=== PATIENT | male | born 1940 | race Caucasian/White ===

== ENCOUNTER 2022-09-05 13:44 | Inpatient (IN) | payer OTHER ==
[~2022-09-05] VITALS: Ht 188 cm; Wt 80.5 kg
[2022-09-05] MEDS ORDERED: GLUCAGON EMERG KIT 1mg/1ml IV ONE ×2 (14:30→18:00)
[2022-09-05] MEDS ORDERED: ONDANSETRON HCL 4 MG/2 ML VIAL IV ONE (14:30)
[2022-09-05 15:23] LABS: Basophils # (auto) 0 10 ^3/uL (0-0.2); Basophils % (auto) 0.9 % (0.0-2.0); Eosinophils # (auto) 0.1 10 ^3/uL (0-0.8); Eosinophils % (auto) 1.7 % (0.0-7.0); Hematocrit 44.7 % (41.0-53.0); Hemoglobin 15.1 g/dL (13.5-17.5); Lymphocytes # (auto) 1.1 10 ^3/uL (0.4-5.4); Lymphocytes % (auto) 20.8 % (10.0-50.0); Mean Corpuscular Hemoglobin 31.4 pg (28.0-32.0); Mean Corpuscular Hgb Conc. 33.8 g/dL (32.0-36.0); Mean Corpuscular Volume 92.9 fL (80.0-100.0); Monocytes # (auto) 0.5 10 ^3/uL (0-1.3); Monocytes % (auto) 9.2 % (0.0-12.0); Neutrophils # (auto) 3.7 10 ^3/uL (1.6-8.6); Neutrophils % (auto) 67.4 % (37.0-80.0); Nucleated Red Blood Cells % 0.1 %; Red Blood Cells 4.82 10^6/uL (4.5-5.90); Red Cell Distribution Width 14.4 % (11.8-14.3); White Blood Cell 5.5 10^3/uL (4.4-10.8)
[2022-09-05 15:41] LABS: INR 0.97 (0.9-1.15); Partial Thromboplastin Time 27.3 sec (24.6-33.4)
[2022-09-05] MEDS ORDERED: METOCLOPRAMIDE HCL 5MG/ml INJ 2ml VIAL IV ONE (15:45)
[2022-09-05 15:46] LABS: Albumin 3.9 g/dL (3.4-5.0); BUN/Creatinine Ratio 22.5 (10.0-20.0); Calcium 9.1 mg/dL (8.5-10.1); Potassium 4.4 mmol/L (3.5-5.1)
[2022-09-05 15:49] LABS: Total Protein 7.8 g/dL (6.4-8.2)
[2022-09-05] MEDS ORDERED: ONDANSETRON HCL 4 MG/2 ML VIAL IV PRN (18:00)
[2022-09-05] MEDS ORDERED: PANTOPRAZOLE 40 MG/10 ML VIAL INJ IV ONE (18:00)
[2022-09-05] MEDS ORDERED: hydrALAZINE HCL 20 MG/ML VL IV PRN (18:30)
[2022-09-05 19:54] LABS: Urine Bacteria NONE SEEN /hpf (None Seen); Urine Blood Negative /uL (Negative); Urine Mucus FEW (None Seen); Urine WBC 1 /hpf (0 - 3)
[2022-09-05] MEDS ORDERED: ONDANSETRON HCL 4 MG/2 ML VIAL ONE (20:06)
[2022-09-05] MEDS ORDERED: PROPOFOL 10 MG/ML 20 ML IV ONE (20:06)
[2022-09-05] MEDS ORDERED: MIDAZOLAM HCL 2MG/2ML 2ml VIAL (1mg/ml) ONE (20:06)
[2022-09-05] MEDS ORDERED: fentaNYL CITRATE 100 MCG/2 ML VL ONE (20:06)
[2022-09-05] MEDS ORDERED: SODIUM CHLORIDE LOCK 10 ML ONE (20:06)
[2022-09-05 21:59] VITALS: BP 136/71
[2022-09-05] MEDS ORDERED: MELO1TAB56 PO (22:20)
[2022-09-05] MEDS ORDERED: HYDR-4072 PO (22:20)
[2022-09-05 22:22] VITALS: BP 119/54
[2022-09-05] MEDS: SUCRALFATE 1 GM/10 ML ORAL SUSP PO SCH (22:53)
[2022-09-05 23:00] VITALS: BP 136/71
[2022-09-06 05:00] VITALS: BP 132/74
[2022-09-06] MEDS: SUCRALFATE 1 GM/10 ML ORAL SUSP PO SCH ×2 (06:35→09:57)
[2022-09-06 07:17] LABS: Basophils # (auto) 0.1 10 ^3/uL (0-0.2); Basophils % (auto) 1.2 % (0.0-2.0); Eosinophils # (auto) 0.2 10 ^3/uL (0-0.8); Eosinophils % (auto) 3.5 % (0.0-7.0); Hematocrit 39.4 % (41.0-53.0); Hemoglobin 13.2 g/dL (13.5-17.5); Lymphocytes # (auto) 1.6 10 ^3/uL (0.4-5.4); Lymphocytes % (auto) 25.1 % (10.0-50.0); Mean Corpuscular Hemoglobin 31.4 pg (28.0-32.0); Mean Corpuscular Hgb Conc. 33.6 g/dL (32.0-36.0); Mean Corpuscular Volume 93.4 fL (80.0-100.0); Monocytes # (auto) 0.6 10 ^3/uL (0-1.3); Monocytes % (auto) 9.6 % (0.0-12.0); Neutrophils # (auto) 3.9 10 ^3/uL (1.6-8.6); Neutrophils % (auto) 60.6 % (37.0-80.0); Nucleated Red Blood Cells % 0.1 %; Red Blood Cells 4.22 10^6/uL (4.5-5.90); Red Cell Distribution Width 14.2 % (11.8-14.3); White Blood Cell 6.4 10^3/uL (4.4-10.8)
[2022-09-06 07:23] LABS: Potassium 3.9 mmol/L (3.5-5.1)
[2022-09-06 07:40] LABS: BUN/Creatinine Ratio 24.4 (10.0-20.0); Bilirubin, Total 0.9 mg/dL (0.2-1.0); Calcium 8.1 mg/dL (8.5-10.1); Total Protein 6.2 g/dL (6.4-8.2)
[2022-09-06 09:38] VITALS: BP 125/64
[2022-09-06] MEDS ORDERED: ENOXAPARIN SOD 40 MG/0.4 ML SYRINGE SC SCH (10:00)
[2022-09-06] MEDS ORDERED: PANTOPRAZOLE 40 MG/10 ML VIAL INJ IV SCH (10:00)
[2022-09-06 13:23] VITALS: BP 125/61
[2022-09-06] MEDS ORDERED: SUCR1SUS10 PO (13:23)
[2022-09-06] MEDS ORDERED: PANT40TA2 PO (13:23)
== END 2022-09-06 16:00 | disposition home or self-care (01) | DRG 394 ==
LOC: ER 13:44 → TELE 18:23 → TELE-EAST 20:58
PROVIDERS: ADMIT Registered Nurse; ATTEND Internal Medicine
PROC: 0DB98ZX Excision of Duodenum, Via Natural or Artificial Opening Endoscopic, Diagnostic (ICD-10-PCS; 2022-09-05)
PROC: 0DB68ZX Excision of Stomach, Via Natural or Artificial Opening Endoscopic, Diagnostic (ICD-10-PCS; 2022-09-05)
PROC: 0DB58ZX Excision of Esophagus, Via Natural or Artificial Opening Endoscopic, Diagnostic (ICD-10-PCS; 2022-09-05)
PROC: 0DC38ZZ Extirpation of Matter from Lower Esophagus, Via Natural or Artificial Opening Endoscopic (ICD-10-PCS; principal; 2022-09-05 20:09)
DX: T18.108A Unspecified foreign body in esophagus causing other injury, initial encounter (principal); K22.10 Ulcer of esophagus without bleeding; X58.XXXA Exposure to other specified factors, initial encounter; K26.9 Duodenal ulcer, unspecified as acute or chronic, without hemorrhage or perforation; I10 Essential (primary) hypertension; G24.9 Dystonia, unspecified; G20 Parkinson's disease; K29.90 Gastroduodenitis, unspecified, without bleeding; K44.9 Diaphragmatic hernia without obstruction or gangrene; Z88.0 Allergy status to penicillin; Y93.89 Activity, other specified; Y92.89 Other specified places as the place of occurrence of the external cause; Y99.8 Other external cause status; Z88.2 Allergy status to sulfonamides; Z88.5 Allergy status to narcotic agent
CPT/HCPCS: 36415; 71045; 80053; 81001; 84484; 85025; 85610; 85730; 86850; 86900; 86901; 94660; 96374; 96375; C9113; G0378; J2250; J2405; J2704

== ENCOUNTER 2023-06-29 14:06 | Emergency (ER) | payer OTHER ==
[~2023-06-29] VITALS: Ht 188 cm; Wt 76.9 kg
[~2023-06-29 14:06] MED LIST: HYDR-4072 PO; MELO-335 PO; PANT40TA2 PO; SUCR1SUS26 PO
[2023-06-29] MEDS ORDERED: ONDANSETRON ODT 4 MG TAB PO ONE (15:30)
[2023-06-29] MEDS ORDERED: MORPHINE SULFATE INJ 2 MG/ml SYRG IM ONE (15:30)
[2023-06-29 16:02] LABS: Basophils # (auto) 0.1 10 ^3/uL (0-0.2); Basophils % (auto) 0.9 % (0.0-2.0); Eosinophils # (auto) 0.2 10 ^3/uL (0-0.8); Eosinophils % (auto) 2.6 % (0.0-7.0); Hematocrit 44.3 % (41.0-53.0); Hemoglobin 14.6 g/dL (13.5-17.5); Lymphocytes # (auto) 2.4 10 ^3/uL (0.4-5.4); Lymphocytes % (auto) 31.3 % (10.0-50.0); Mean Corpuscular Hemoglobin 31.4 pg (28.0-32.0); Mean Corpuscular Volume 95.3 fL (80.0-100.0); Monocytes # (auto) 0.7 10 ^3/uL (0-1.3); Monocytes % (auto) 8.7 % (0.0-12.0); Neutrophils # (auto) 4.4 10 ^3/uL (1.6-8.6); Neutrophils % (auto) 56.5 % (37.0-80.0); Red Blood Cells 4.65 10^6/uL (4.5-5.90); Red Cell Distribution Width 14.1 % (11.8-14.3); White Blood Cell 7.7 10^3/uL (4.4-10.8)
[2023-06-29 16:11] LABS: Chloride 110 mmol/L (98-107); Potassium 4.8 mmol/L (3.5-5.1); Sodium 142 mmol/L (136-145)
[2023-06-29 16:12] LABS: Anion Gap 7 (5-15); Calcium 9.4 mg/dL (8.5-10.1); Carbon Dioxide 25 mmol/L (20-30)
[2023-06-29 16:17] LABS: BUN/Creatinine Ratio 20.2 (10.0-20.0); Blood Urea Nitrogen 22 mg/dL (9-23); Glucose 98 mg/dL (74-106)
[2023-06-29 17:40] VITALS: TEMP 98; O2SAT 97
[2023-06-29] MEDS ORDERED: ACE3T PO (18:03)
[2023-06-29 18:06] VITALS: BP 140/71; PULSE 84; RESP 19
== END 2023-06-29 18:22 | disposition home or self-care (01) ==
LOC: ER 14:06
DX: R60.0 Localized edema (principal); Z88.0 Allergy status to penicillin; Z88.2 Allergy status to sulfonamides; Z88.6 Allergy status to analgesic agent
CPT/HCPCS: 36415; 80048; 83880; 84484; 85025; 93971; 96372; 99285; J2270; Q0162

== ENCOUNTER 2023-09-13 10:12 | Inpatient (IN) | payer OTHER ==
[~2023-09-13] VITALS: Ht 185.4 cm; Wt 87.4 kg
[~2023-09-13 10:12] MED LIST changes: +ACE3T PO; +CLIN1CAP70 PO; +LEVO500T91 PO; -MELO-335 PO; +MELO15TA29 PO
[2023-09-13] MEDS ORDERED: FUROSEMIDE 40 MG/4 ML VIAL IV ONE (11:45)
[2023-09-13] MEDS ORDERED: VANCOMYCIN PER PHARMACY 0 MG IV SCH (11:45)
[2023-09-13 12:18] LABS: Basophils # (auto) 0.1 10 ^3/uL (0-0.2); Basophils % (auto) 0.9 % (0.0-2.0); Eosinophils # (auto) 0.5 10 ^3/uL (0-0.8); Eosinophils % (auto) 6.8 % (0.0-7.0); Hematocrit 34.5 % (41.0-53.0); Hemoglobin 11.7 g/dL (13.5-17.5); Lymphocytes # (auto) 1.5 10 ^3/uL (0.4-5.4); Lymphocytes % (auto) 20.8 % (10.0-50.0); Mean Corpuscular Hemoglobin 32.1 pg (28.0-32.0); Mean Corpuscular Hgb Conc. 33.8 g/dL (32.0-36.0); Monocytes # (auto) 0.5 10 ^3/uL (0-1.3); Monocytes % (auto) 7.2 % (0.0-12.0); Neutrophils # (auto) 4.5 10 ^3/uL (1.6-8.6); Neutrophils % (auto) 64.3 % (37.0-80.0); Red Blood Cells 3.63 10^6/uL (4.5-5.90); Red Cell Distribution Width 14.9 % (11.8-14.3); White Blood Cell 7.1 10^3/uL (4.4-10.8)
[2023-09-13 12:35] LABS: Albumin 4.1 g/dL (3.2-4.8); Alkaline Phosphatase 90 U/L (46-116); Anion Gap 10 (5-15); Aspartate Aminotransferase 18 U/L (13-40); BUN/Creatinine Ratio 22.9 (10.0-20.0); Blood Urea Nitrogen 25 mg/dL (9-23); Calcium 9.2 mg/dL (8.5-10.1); Carbon Dioxide 24 mmol/L (20-30); Chloride 105 mmol/L (98-107); Glucose 109 mg/dL (74-106); Potassium 4.8 mmol/L (3.5-5.1); Sodium 139 mmol/L (136-145)
[2023-09-13 12:36] LABS: Bilirubin, Total 0.4 mg/dL (0.2-1.0); Total Protein 6.6 g/dL (5.7-8.2)
[2023-09-13 12:41] LABS: Alanine Aminotransferase < 9 U/L (7-40)
[2023-09-13 12:44] LABS: CRP High Sensitivity 1.11 mg/dL (<1.0)
[2023-09-13 12:49] LABS: Urine Bacteria None Seen /hpf (None Seen); Urine WBC None Seen /hpf (0 - 3)
[2023-09-13 13:08] LABS: Erythrocyte Sedimentation Rate 52 mm/hr (0-20)
[2023-09-13 13:18] LABS: Urine Blood Negative /uL (Negative); Urine Clarity Clear (Clear); Urine Color Yellow (Yellow); Urine Protein, UAD Negative (Negative); Urine Specific Gravity 1.022 (1.001-1.035); Urine Urobilinogen Normal (Negative); Urine pH 6.5 (5.0-9.0)
[2023-09-13] MEDS: VANCOMYCIN 1GM/200ML 200 ML IV ONE (13:30)
[2023-09-13] MEDS ORDERED: LORazepam 2MG/ML-1ML VIAL IV ONE (13:45)
[2023-09-13] MEDS ORDERED: ACETAMINOPHEN 325 MG TAB PO PRN (13:45)
[2023-09-13 15:28] LABS: INR 0.95 (0.9-1.15); Partial Thromboplastin Time 28.8 SEC (24.5-34.5)
[2023-09-13 19:44] VITALS: PULSE 76; RESP 16
[2023-09-13 20:00] VITALS: PULSE 68; RESP 16; RESP 18
[2023-09-13 21:00] VITALS: BP 151/72; PULSE 81; RESP 18; TEMP 98.4; O2SAT 96
[2023-09-13] MEDS: PANTOPRAZOLE 40 MG TAB PO SCH (21:31)
[2023-09-13] MEDS: SODIUM CHLOR 0.9% PF (SALINE LOCK) 10ML VIAL/SYR IV SCH (21:34)
[2023-09-14] VITALS (9 sets, daily range): BP systolic 125–139; BP diastolic 58–77; PULSE 68–83; RESP 16–20; TEMP 37.1; O2SAT 93–97
[2023-09-14] MEDS ORDERED: hydrALAZINE HCL 20 MG/ML VL IV PRN (02:30)
[2023-09-14] MEDS ORDERED: LIDOCAINE 1% (LOCAL ANESTH.) PF 5ml SDV ID ONE (08:45)
[2023-09-14] MEDS: LIDOCAINE 1% (LOCAL ANESTH.) PF 5ml SDV ID ONE (08:52)
[2023-09-14] MEDS: SODIUM CHLOR 0.9% PF (SALINE LOCK) 10ML VIAL/SYR IV SCH (10:00)
[2023-09-14] MEDS: VANCOMYCIN 1GM/200ML 200 ML IV SCH (10:08)
[2023-09-14] MEDS: FUROSEMIDE 20 MG TAB PO SCH (10:08)
[2023-09-14] MEDS: HYDROcodone-ACET 5/325MG TAB PO PRN (10:09)
[2023-09-15] VITALS (10 sets, daily range): BP systolic 124–140; BP diastolic 62–74; PULSE 63–81; RESP 16–20; TEMP 98–98.9; O2SAT 92–96
[2023-09-16] VITALS (8 sets, daily range): BP systolic 107–135; BP diastolic 54–64; PULSE 73–85; RESP 16–21; TEMP 97.4–98.9; O2SAT 93–94
[2023-09-16] MEDS: HYDROcodone-ACET 10/325MG TAB PO PRN (12:21)
== END 2023-09-16 21:35 | DRG 603 ==
LOC: ER 10:12 → OVERFLOW 13:37 → CENTRAL 18:45
PROVIDERS: ADMIT Internal Medicine; ATTEND Internal Medicine
PROC: 02HV33Z Insertion of Infusion Device into Superior Vena Cava, Percutaneous Approach (ICD-10-PCS; principal; 2023-09-14)
PROC: B548ZZA Ultrasonography of Superior Vena Cava, Guidance (ICD-10-PCS; 2023-09-14)
PROC: 5A09357 Assistance with Respiratory Ventilation, Less than 24 Consecutive Hours, Continuous Positive Airway Pressure (ICD-10-PCS; 2023-09-14)
DX: L03.115 Cellulitis of right lower limb (principal); L03.116 Cellulitis of left lower limb; K21.9 Gastro-esophageal reflux disease without esophagitis; G20.A1 Parkinson's disease without dyskinesia, without mention of fluctuations; G89.29 Other chronic pain; Z90.49 Acquired absence of other specified parts of digestive tract; Z88.0 Allergy status to penicillin; Z88.2 Allergy status to sulfonamides; Z88.5 Allergy status to narcotic agent; Z82.3 Family history of stroke
CPT/HCPCS: 36415; 36569; 71045; 73721; 80053; 80202; 81001; 82565; 83605; 83880; 84484; 85025; 85610; 85652; 85730; 86141; 87040; 93970; 94660; 97110; 97163; 97530; G0378

== ENCOUNTER 2025-02-21 23:15 | Inpatient (IN) | payer OTHER ==
[~2025-02-21] VITALS: Ht 185.4 cm; Wt 55.5 kg
--- NOTE | 2025-02-21 23:38 | ED.PDOC ---
GI ASSESSMENT HPI Comments 85-year-old male brought in by ambulance complains of constipation and rectal pain. EMS noted that the patient had some rectal prolapse. Patient states it has come out twice over the last 2 days. Chief Complaint: Constipation Time Seen by MD: 23:25 Allergies: Coded Allergies: Codeine (Verified Allergy, Unknown, 09/05/22) Penicillins (Verified Allergy, Unknown, 09/05/22) Sulfa Antibiotics (Verified Allergy, Unknown, 09/05/22) Home Meds Active Scripts Clindamycin Hcl (Clindamycin Hcl) 300 Mg Cap, 1 CAP PO TID, #30 CAP Prov:LEONORA MEIER 09/06/23 Levofloxacin Hemihydrate (LEVAQUIN 500 MG) 500 Mg Tab, 1 TAB PO DAILY, #10 TAB Prov:LEONORA MEIER 09/06/23 Acetaminophen W/ Codeine (Tylenol W/Cod #3) 1 Tab Tb, 1 TAB PO Q8HP PRN, #15 TAB Prov:GREGG BROWN PAC 06/29/23 Pantoprazole Sodium Sesquihydr (Protonix) 40 Mg Tab, 40 MG PO BIDAC, #60 TAB Prov:TRAVIS CUNNINGHAM MD 09/06/22 Sucralfate (CARAFATE SUSP) 1 Gm/10 Ml Ss, 1 GM PO QIDACHS for 30 Days, #1200 ML Prov:TRAVIS CUNNINGHAM MD 09/06/22 Reported Medications Meloxicam (Meloxicam) 15 Mg Tab, 1 TAB PO DAILY 09/05/22 Hydrocodone-Acetaminophen (Hydrocodone/Acetaminophen 10-325 mg) 1 Tab Tab, 1 TAB PO BIDPRN PRN for PAIN SCALE 1 THRU 6 09/05/22 Information Source: Patient, Emergency Med Personnel Mode of Arrival: EMS Timing: Days Duration: Intermittent Past Medical History PAST MEDICAL HISTORY: Dementia Surgical History: Denies all surgeries Family History Family History: Reviewed,noncontributory to illness Social History Smoker: Non-Smoker Alcohol: Denies ETOH Use Drugs: Denies Drug Use Lives In: Home Gastrointestinal: reports: constipated, rectal pain, others (Rectal prolapse) All Other Systems: Reviewed and Negative Physical Exam Exam Comments Elderly General Appearance: Mild Distress HEENT: Normal ENT Inspection, Pharynx Normal, TMs Normal Neck: Full Range of Motion, Non-Tender, Normal, Normal Inspection Respiratory: Chest Non-Tender, Lungs Clear, No Accessory Muscle Use, No Respiratory Distress, Normal Breath Sounds Cardiovascular: No Edema, No JVD, No Murmur, No Gallop, Normal Peripheral Pulses, Regular Rate/Rhythm Breast Exam: Deferred Gastrointestinal: Other (Rectal prolapse noted) Genitalia: Deferred Pelvic: Deferred Rectal: Deferred Extremities: No calf tenderness, Normal capillary refill, Normal inspection, Normal range of motion, Non-tender, No pedal edema Musculoskeletal : Apperance: Normal Neurologic: Alert, accounting office manager II-XII nml as Tested, No Motor Deficits, Normal Affect, Normal Mood, No Sensory Deficits Cerebellar Function: Normal Reflexes: Normal Skin: Dry, Normal Color, Warm Lymphatic: No Adenopathy Was a procedure done? Was a procedure done?: No GI differential Dx Differential Diagnosis: Appendicitis, Bowel Obstruction, Diverticular disease, Gastritis/PUD, Gastroenteritis, GI hemorrhage, UTI, Kidney Stone, Other X-Ray, Labs, Meds, VS Vital Signs Date Time Temp Pulse Resp B/P (MAP) Pulse Ox O2 Delivery O2 Flow Rate FiO2 02/22/25 00:48 66 12 135/72 02/22/25 00:02 66 12 96 Room Air* 0 21 02/22/25 00:02 98.0 66 12 118/74 (89) 96 98.0 02/21/25 23:20 98.4 66 18 123/67 97 98.4 Lab Test 02/21/25 23:48 Range/Units White Blood Count 8.9 4.4-10.8 10^3/uL Red Blood Count 3.76 L 4.5-5.90 10^6/uL Hemoglobin 11.9 L 13.5-17.5 g/dL Hematocrit 34.5 L 41.0-53.0 % Mean Corpuscular Volume 91.9 80.0-100.0 fL Mean Corpuscular Hemoglobin 31.6 28.0-32.0 pg Mean Corpuscular Hemoglobin Concent 34.4 32.0-36.0 g/dL Red Cell Distribution Width 14.4 H 11.8-14.3 % Platelet Count 374 140-450 10^3/uL Mean Platelet Volume 6.2 L 6.9-10.8 fL Neutrophils (%) (Auto) 63.4 37.0-80.0 % Lymphocytes (%) (Auto) 24.5 10.0-50.0 % Monocytes (%) (Auto) 8.3 0.0-12.0 % Eosinophils (%) (Auto) 3.1 0.0-7.0 % Basophils (%) (Auto) 0.7 0.0-2.0 % Neutrophils # (Auto) 5.6 1.6-8.6 10 ^3/uL Lymphocytes # (Auto) 2.2 0.4-5.4 10 ^3/uL Monocytes # (Auto) 0.7 0-1.3 10 ^3/uL Eosinophils # (Auto) 0.3 0-0.8 10 ^3/uL Basophils # (Auto) 0.1 0-0.2 10 ^3/uL Nucleated Red Blood Cells 0.0 % Prothrombin Time 10.8 9.3-11.8 sec Prothrombin Time INR 1.02 0.9-1.15 Activated Partial Thromboplast Time 27.0 24.5-34.5 SEC Sodium Level 140 136-145 mmol/L Potassium Level 4.1 3.5-5.1 mmol/L Chloride Level 106 98-107 mmol/L Carbon Dioxide Level 25 20-31 mmol/L Anion Gap 9 5-15 Blood Urea Nitrogen 23 9-23 mg/dL Creatinine 0.90 0.700-1.30 mg/dL Glomerular Filtration Rate Calc 83 >90 mL/min BUN/Creatinine Ratio 25.6 H 10.0-20.0 Serum Glucose 102 74-106 mg/dL Calcium Level 9.2 8.7-10.4 mg/dL Total Bilirubin 0.6 0.2-1.0 mg/dL Aspartate Amino Transferase (AST) 15 13-40 U/L Alanine Aminotransferase (ALT) < 9 7-40 U/L Alkaline Phosphatase 65 46-116 U/L Total Protein 7.0 5.7-8.2 g/dL Albumin 3.9 3.2-4.8 g/dL Lipase 27 12-53 U/L Current Medications Medications (Trade) Dose Ordered Sig/Elizabeth Route Start Time Stop Time Status Last Admin Ondansetron HCl (Zofran) 4 mg ONCE ONCE IV 02/21/25 23:30 02/21/25 23:34 DC 02/22/25 00:48 Sodium Chloride 1,000 ml @ 1,000 mls/hr Q1H ONCE IVB 02/21/25 23:30 02/22/25 00:29 DC 02/22/25 00:48 Morphine Sulfate 4 mg ONCE ONCE IV 02/21/25 23:30 02/21/25 23:34 DC 02/22/25 00:48 Time of 1ST Reevaluation: 23:37 Reevaluation 1ST: Unchanged Patient Education/Counseling: Diagnosis, Treatment Family Education/Counseling: No Family Present SEPSIS Sepsis Screen Date sepsis recognized/suspect: Feb 21, 2025 Time Sepsis recognized/suspect: 2317 Recent Procedure: No On Antibiotic Therapy: No Respiratory Rate >20: No Heart Rate >90: No Temp<36 C (96.8 F) or >38.3 C: No SBP <90 or MAP <65 mmHG: No New Acute Mental Status Change: No Is the patient on CPAP, BIPAP,: No Physician Orders Urinalysis (02/21/25 23:30) Electrocardigram (02/21/25 23:30) Chest Portable (02/21/25 23:30) Ct Ab Pel Wo Con-No Oral Or Iv (02/21/25 23:30) Vital Signs Date Time Temp Pulse Resp B/P (MAP) Pulse Ox O2 Delivery O2 Flow Rate FiO2 02/22/25 00:48 66 12 135/72 02/22/25 00:02 66 12 96 Room Air* 0 21 02/22/25 00:02 98.0 66 12 118/74 (89) 96 98.0 02/21/25 23:20 98.4 66 18 123/67 97 98.4 Laboratory Tests Test 02/21/25 23:48 White Blood Count 8.9 10^3/uL (4.4-10.8) Medications Medications Dose Ordered Sig/Elizabeth Route Start Time Stop Time Status Last Admin Dose Admin Morphine Sulfate 4 mg ONCE ONCE IV 02/21/25 23:30 02/21/25 23:34 DC 02/22/25 00:48 Ondansetron HCl 4 mg ONCE ONCE IV 02/21/25 23:30 02/21/25 23:34 DC 02/22/25 00:48 Sodium Chloride 1,000 ml @ 1,000 mls/hr Q1H ONCE IVB 02/21/25 23:30 02/22/25 00:29 DC 02/22/25 00:48 Departure 1 Departure Time of Disposition: 01:52 Impression: Primary Impression: Constipation Additional Impression: Rectal prolapse Disposition: 09 ADMITTED INPATIENT Admit to: Med Surg Condition: Guarded Discharged With: Self Comments Lab results reviewed. CT scan of the abdomen reviewed. Patient has significant constipation and developed rectal prolapse. Patient will need to be admitted for supportive care and specialty consultation. Critical Care Note Critical Care Time?: No Stability Stability form required: No Heart Score Heart Score: Heart Score Response (Comments) Value History N/A 0 EKG N/A 0 Age N/A 0 Risk Factors N/A 0 Troponin N/A 0 Total 0 PARK NUÑEZ MD Feb 21, 2025 23:38
[2025-02-21 23:58] LABS: Hematocrit 34.5 % (41.0-53.0); Hemoglobin 11.9 g/dL (13.5-17.5); Mean Corpuscular Hemoglobin 31.6 pg (28.0-32.0); Mean Corpuscular Volume 91.9 fL (80.0-100.0); Nucleated Red Blood Cells % 0.0 %
[2025-02-22] VITALS (9 sets, daily range): BP systolic 124–149; BP diastolic 69–93; PULSE 48–73; RESP 12–18; TEMP 97.8–98.3; O2SAT 94–97
[2025-02-22 00:16] LABS: Albumin 3.9 g/dL (3.2-4.8); Alkaline Phosphatase 65 U/L (46-116); Anion Gap 9 (5-15); BUN/Creatinine Ratio 25.6 (10.0-20.0); Blood Urea Nitrogen 23 mg/dL (9-23); Calcium 9.2 mg/dL (8.7-10.4); Carbon Dioxide 25 mmol/L (20-31); Chloride 106 mmol/L (98-107); Glucose 102 mg/dL (74-106); Lipase 27 U/L (12-53); Potassium 4.1 mmol/L (3.5-5.1); Sodium 140 mmol/L (136-145); Total Protein 7.0 g/dL (5.7-8.2)
[2025-02-22 00:17] LABS: Alanine Aminotransferase < 9 U/L (7-40); Bilirubin, Total 0.6 mg/dL (0.2-1.0)
[2025-02-22 00:21] LABS: INR 1.02 (0.9-1.15); Partial Thromboplastin Time 27.0 SEC (24.5-34.5); Prothrombin Time 10.8 sec (9.3-11.8)
[2025-02-22] MEDS: SODIUM CHLORIDE 0.9% 1,000 ML IVB ONE (00:48)
[2025-02-22] MEDS: ONDANSETRON HCL 4 MG/2 ML VIAL IV ONE (00:48)
[2025-02-22] MEDS: MORPHINE SULFATE 4 MG/ML SYR/VIAL IV ONE (00:48)
[2025-02-22] MEDS: IOHEXOL 300 MG/ML 100ML BOTTLE IJ ONE (00:48)
--- NOTE | 2025-02-22 00:58 | DVH ---
Exam: CT CT AB PEL WO CON-NO ORAL OR IV History: abd pain Comparison Study: None Technique: Multidetector spiral CT of the abdomen was performed from lung bases to pubic symphysis. I maging was performed without IV contrast. Axial, coronal and sagittal multiplanar reformats were obta ined from the axial data set by the technologist. Radiation dose : 1. Abdomen/Pelvis: CTDIvol 18.09 mGy, DLP 3063.68 mGy*cm. Findings: Evaluation of solid organs is limited due to lack of intravenous contrast use. Lung Bases: No acute or significant lung base finding. Normal heart size. No pleural or pericardial effusion. Liver: The liver is normal in size. No focal lesions. Gallbladder and biliary Tree: Unremarkable Spleen: Unremarkable Pancreas: The pancreas is grossly normal in appearance. Adrenal Glands: Unremarkable Kidneys: Kidneys are grossly normal without calculi or hydronephrosis. Bladder: Bladder is decompressed with a Lin catheter and cannot be adequately assessed. Bowel: The stomach is grossly normal in appearance. Small bowel and colon are normal in caliber and d istribution. The appendix is not visualized; however, no secondary findings of acute appendicitis malu ntified. Ascites: Absent Lymphadenopathy: No mesenteric, retroperitoneal or periportal lymphadenopathy. Abdominal wall and Mesentery: Unremarkable. Vasculature: The visualized abdominal aorta is normal in size and caliber. Evaluation of abdominal a nd pelvic vessels is limited due to lack of intravenous contrast. Pelvic Organs: Unremarkable Musculoskeletal: No aggressive focal bony lesions, acute fractures or dislocation. IMPRESSION: No acute abdominal or pelvic findings. Radiation optimization: All CT scans at this facility use at least one of these dose optimization andressa hniques: automated exposure control mA and/or kV adjustment per patient size (includes targeted exam s where dose is matched to clinical indication) or iterative reconstruction.
--- NOTE | 2025-02-22 00:59 | DVH ---
CHEST RADIOGRAPH Indication: chest pain Technique: Single frontal view of the chest was obtained COMPARISON: XY CHEST PORTABLE on DOS: 09/14/23, XY CHEST PORTABLE on DOS: 09/05/22 FINDINGS: Lungs and pleural spaces are clear. Cardiac silhouette is borderline size. Mild pulmonary venous meenakshi estion. Bones and soft tissues demonstrate no significant abnormality. IMPRESSION: No acute disease.
[2025-02-22] MEDS: FLEET ENEMA(ADULT) 135 ML PR ONE ×2 (03:15→05:00)
[2025-02-22] MEDS ORDERED: ONDANSETRON HCL 4 MG/2 ML VIAL IV PRN (03:15)
[2025-02-22] MEDS ORDERED: MORPHINE SULFATE INJ 2 MG/ml SYRG IV PRN (03:15)
[2025-02-22 03:19] LABS: Iron 44.0 ug/dL (65-175); Total Iron Binding Capacity 241.0 ug/dL (250-425)
--- NOTE | 2025-02-22 03:23 | DVHHPRES ---
History of Present Illness Resident Creating Document: ELAINE ROTHMAN RESIDENT History of Present Illness This is an 85-year-old male with past medical history of sciatica, GERD, dementia presented to the ER with chief complain of constipation and rectal pain. Patient is a poor historian due to dementia. on bedside reported the patient takes Zahl for chronic back pain, has chronic constipation. He started complaining of rectal pain starting this week. Due to clinical status, could not obtain review of systems PMHx: Sciatica, GERD, dementia PSHx: No significant surgical history Social history: denies smoking, alcohol, drug use. Full code, next of kin Home medication: Sucralfate, meloxicam, pantoprazole, clindamycin, levofloxacin, acetaminophen, Zahl Allergic history: Codeine, penicillin, sulfa antibiotics Patient seen and examined at bedside. Currently has no new complaints. Completed fecal de-impaction at bedside Review of Systems Gastrointestinal: Constipation, Other (Rectal pain) Allergies: Coded Allergies: Codeine (Verified Allergy, Unknown, 09/05/22) Penicillins (Verified Allergy, Unknown, 09/05/22) Sulfa Antibiotics (Verified Allergy, Unknown, 09/05/22) Exam Vital Signs Vital Signs Date Time Temp Pulse Resp B/P (MAP) Pulse Ox O2 Delivery O2 Flow Rate FiO2 02/22/25 00:48 66 12 135/72 02/22/25 00:02 96 Room Air* 0 21 02/22/25 00:02 98.0 98.0 Exam General: Cachectic. Patient alert and oriented only to place and person. Patient following commands. HEENT: Normocephalic, atraumatic, dry mucous membranes Respiratory/pulmonary: Clear lungs bilaterally, vesicular murmurs present in almost all lung rubin, no associated crackles or wheezes. Cardiovascular: Normal heart sounds S1 and S2 with no associated murmurs Abdomen: Abdomen nondistended, there is no pain to palpation in any of the abdominal quadrants, no palpable masses. Extremities: There is no peripheral edema present at the lower extremities. Peripheral Pulses: 3+ Radial (R). 3+ Radial (L). 3+ Dorsalis pedis (R). 3+ Dorsalis pedis(L) Skin: Right-sided sacral ulcer with wound dressing in place Neurological: Intact cranial nerves with no focal neurologic deficits RUPERTO: Stool impactation, rectal vault filled with hard stools. Manual disimpaction of rectum performed, on inspection- brown hard stools without blood seen. Labs/Xrays Labs Test 02/21/25 23:48 Range/Units White Blood Count 8.9 4.4-10.8 10^3/uL Red Blood Count 3.76 L 4.5-5.90 10^6/uL Hemoglobin 11.9 L 13.5-17.5 g/dL Hematocrit 34.5 L 41.0-53.0 % Mean Corpuscular Volume 91.9 80.0-100.0 fL Mean Corpuscular Hemoglobin 31.6 28.0-32.0 pg Mean Corpuscular Hemoglobin Concent 34.4 32.0-36.0 g/dL Red Cell Distribution Width 14.4 H 11.8-14.3 % Platelet Count 374 140-450 10^3/uL Mean Platelet Volume 6.2 L 6.9-10.8 fL Neutrophils (%) (Auto) 63.4 37.0-80.0 % Lymphocytes (%) (Auto) 24.5 10.0-50.0 % Monocytes (%) (Auto) 8.3 0.0-12.0 % Eosinophils (%) (Auto) 3.1 0.0-7.0 % Basophils (%) (Auto) 0.7 0.0-2.0 % Neutrophils # (Auto) 5.6 1.6-8.6 10 ^3/uL Lymphocytes # (Auto) 2.2 0.4-5.4 10 ^3/uL Monocytes # (Auto) 0.7 0-1.3 10 ^3/uL Eosinophils # (Auto) 0.3 0-0.8 10 ^3/uL Basophils # (Auto) 0.1 0-0.2 10 ^3/uL Nucleated Red Blood Cells 0.0 % Prothrombin Time 10.8 9.3-11.8 sec Prothrombin Time INR 1.02 0.9-1.15 Activated Partial Thromboplast Time 27.0 24.5-34.5 SEC Sodium Level 140 136-145 mmol/L Potassium Level 4.1 3.5-5.1 mmol/L Chloride Level 106 98-107 mmol/L Carbon Dioxide Level 25 20-31 mmol/L Anion Gap 9 5-15 Blood Urea Nitrogen 23 9-23 mg/dL Creatinine 0.90 0.700-1.30 mg/dL Glomerular Filtration Rate Calc 83 >90 mL/min BUN/Creatinine Ratio 25.6 H 10.0-20.0 Serum Glucose 102 74-106 mg/dL Calcium Level 9.2 8.7-10.4 mg/dL Total Bilirubin 0.6 0.2-1.0 mg/dL Aspartate Amino Transferase (AST) 15 13-40 U/L Alanine Aminotransferase (ALT) < 9 7-40 U/L Alkaline Phosphatase 65 46-116 U/L Total Protein 7.0 5.7-8.2 g/dL Albumin 3.9 3.2-4.8 g/dL Lipase 27 12-53 U/L SEPSIS Sepsis Screen Date sepsis recognized/suspect: Feb 22, 2025 Time Sepsis recognized/suspect: 000 Recent Procedure: No On Antibiotic Therapy: No Respiratory Rate >20: No Heart Rate >90: No Temp<36 C (96.8 F) or >38.3 C: No SBP <90 or MAP <65 mmHG: No New Acute Mental Status Change: No Is the patient on CPAP, BIPAP,: No Physician Orders Electrocardigram (02/21/25 23:30) Chest Portable (02/21/25 23:30) Ct Ab Pel Wo Con-No Oral Or Iv (02/21/25 23:30) Stool Occult Blood (02/22/25 02:39) Reticulocyte Count (02/22/25 02:39) Haptoglobin (02/22/25 02:39) Iron Panel (02/22/25 02:39) Ferritin (02/22/25 02:39) Folate (Folic Acid) (02/22/25 02:39) C-Reactive Protein (02/22/25 02:39) Drug Screen (02/22/25 02:39) Hemoglobin A1c (02/22/25 02:39) Lipid Panel (02/22/25 02:39) Magnesium (02/22/25 02:39) Phosphorus (02/22/25 02:39) PTPTT (02/22/25 02:39) Thyroid Stimulating Hormone (02/22/25 02:39) Urinalysis (02/22/25 02:39) Vitamin B12 (02/22/25 02:39) Vitamin D, 25-Hydroxy (02/22/25 02:39) Admit (02/22/25 03:05) Allergies (02/22/25 03:05) Code Status (02/22/25 03:05) Full Liq Diet (02/22/25 Breakfast) Acetaminophen Tablet (Tylenol Tablet) (02/22/25 03:15) Ondansetron Hcl (Zofran) (02/22/25 03:15) Zinc Sulfate (02/22/25 10:00) Condition: Fair (02/22/25 03:05) Morphine Sulfate Injection (02/22/25 03:15) Enoxaparin Sodium (Lovenox) (02/22/25 03:15) Oxygen By Nasal Cannula (02/22/25 03:05) Lactulose Oral (02/22/25 10:00) Fleet Enema Adult (02/22/25 03:15) Pantoprazole Tablet (Protonix Tablet) (02/22/25 07:00) Sucralfate Susp (Carafate Susp) (02/22/25 07:00) Vital Signs Date Time Temp Pulse Resp B/P (MAP) Pulse Ox O2 Delivery O2 Flow Rate FiO2 02/22/25 00:48 66 12 135/72 02/22/25 00:02 66 12 96 Room Air* 0 21 02/22/25 00:02 98.0 66 12 118/74 (89) 96 98.0 02/21/25 23:20 98.4 66 18 123/67 97 98.4 Laboratory Tests Test 02/21/25 23:48 White Blood Count 8.9 10^3/uL (4.4-10.8) Medications Medications Dose Ordered Sig/Elizabeth Route Start Time Stop Time Status Last Admin Dose Admin Morphine Sulfate 4 mg ONCE ONCE IV 02/21/25 23:30 02/21/25 23:34 DC 02/22/25 00:48 4 MG Ondansetron HCl 4 mg ONCE ONCE IV 02/21/25 23:30 02/21/25 23:34 DC 02/22/25 00:48 4 MG Sodium Chloride 1,000 ml @ 1,000 mls/hr Q1H ONCE IVB 02/21/25 23:30 02/22/25 00:29 DC 02/22/25 00:48 1,000 MLS/HR Assessment/Plan Assessment/Plan Fecal impactation Iatrogenic Chronic constipation CT shows no acute abdominal finding Stool softeners, enema ordered Manual disimpaction performed Discussed discontinuation of Zahl GERD Continue Protonix 40mg q.d. Continue sucralfate 1 g q.i.d. Decubitus Sacral (present on admission) Wound care consulted Dementia Patient has no dementia medication. Normocytic, normochromic anemia, unspecified Ordered stool occult blood, ferritin, iron panel, haptoglobin, reticulocyte count DIET: Full liquid DVT PROPHYLAXIS: Lovenox GI PROPHYLAXIS: Protonix CODE STATUS: Goals of care discussed with patient, spouse, nurses at bedside for more than 35 minutes. Full code DISPOSITION: Med/surge Patient's status and plan discussed with the patient. Case discussed with Dr. Goodson Plan discussed with: Patient, Spouse, Other (Nurses) My Orders Orders - ELAINE ROTHMAN RESIDENT Procedure Category Date Status Time Stool Occult Blood LAB 02/22/25 Logged 02:39 Reticulocyte Count LAB 02/22/25 Logged 02:39 Haptoglobin LAB 02/22/25 Logged 02:39 Iron Panel LAB 02/22/25 In Process 02:39 Ferritin LAB 02/22/25 In Process 02:39 Folate (Folic Acid) LAB 02/22/25 In Process 02:39 C-Reactive Protein LAB 02/22/25 In Process 02:39 Drug Screen LAB 02/22/25 Logged 02:39 Hemoglobin A1c LAB 02/22/25 In Process 02:39 Lipid Panel LAB 02/22/25 In Process 02:39 Magnesium LAB 02/22/25 In Process 02:39 Phosphorus LAB 02/22/25 In Process 02:39 PTPTT LAB 02/22/25 Logged 02:39 Thyroid Stimulating LAB 02/22/25 Logged Hormone 02:39 Urinalysis LAB 02/22/25 Logged 02:39 Vitamin B12 LAB 02/22/25 In Process 02:39 Vitamin D, 25-Hydroxy LAB 02/22/25 In Process 02:39 Admit ADMIT 02/22/25 Transmitted 03:05 Allergies JAMES 02/22/25 In Process 03:05 Code Status CODE 02/22/25 Transmitted 03:05 Full Liq Diet DIET 02/22/25 Transmitted Breakfast Acetaminophen Tablet PHA 02/22/25 Logged (Tylenol Tablet) 03:15 Ondansetron Hcl PHA 02/22/25 Logged (Zofran) 03:15 Zinc Sulfate PHA 02/22/25 Logged 10:00 Condition: Fair JAMES 02/22/25 In Process 03:05 Morphine Sulfate PHA 02/22/25 Logged Injection 03:15 Enoxaparin Sodium PHA 02/22/25 Logged (Lovenox) 03:15 Oxygen By Nasal RT 02/22/25 Transmitted Cannula 03:05 Lactulose Oral PHA 02/22/25 Logged 10:00 Fleet Enema Adult PHA 02/22/25 Logged 03:15 Pantoprazole Tablet PHA 02/22/25 Logged (Protonix Tablet) 07:00 Sucralfate Susp PHA 02/22/25 Logged (Carafate Susp) 07:00 Date of Service: Feb 22, 2025 Billing Provider: JAYRO ISAAC MD Common Visit Codes: [id number] INP/OBS CARE (HIGH) Secondary Visit Codes: [id number] CARE PLAN 30 MINUTES ELAINE ROTHMAN RESIDENT Feb 22, 2025 03:23 JONATHAN ARMENTA RESIDENT Feb 22, 2025 05:21
[2025-02-22] MEDS: ENOXAPARIN SOD 40 MG/0.4 ML SYRINGE SC SCH (03:39)
[2025-02-22 04:15] LABS: Magnesium 2.0 mg/dL (1.6-2.6); Triglycerides 127.0 mg/dL (< 150)
[2025-02-22 04:17] LABS: Cholesterol 123.0 mg/dL (< 200); HDL Cholesterol 30.0 mg/dL (40-59)
[2025-02-22 04:23] LABS: INR 1.01 (0.9-1.15); Partial Thromboplastin Time 28.0 SEC (24.5-34.5); Prothrombin Time 10.7 sec (9.3-11.8)
[2025-02-22 04:32] LABS: Hematocrit 34.5 % (41.0-53.0); Hemoglobin 11.6 g/dL (13.5-17.5); Mean Corpuscular Hemoglobin 31.3 pg (28.0-32.0); Mean Corpuscular Volume 93.2 fL (80.0-100.0); Nucleated Red Blood Cells % 0.0 %
[2025-02-22 04:55] LABS: Chloride 106 mmol/L (98-107); Potassium 3.8 mmol/L (3.5-5.1); Sodium 137 mmol/L (136-145)
[2025-02-22 04:56] LABS: Anion Gap 9 (5-15); Calcium 8.9 mg/dL (8.7-10.4); Carbon Dioxide 22 mmol/L (20-31)
[2025-02-22 05:01] LABS: BUN/Creatinine Ratio 20.2 (10.0-20.0); Blood Urea Nitrogen 19 mg/dL (9-23); Glucose 93 mg/dL (74-106)
[2025-02-22] MEDS: SUCRALFATE 1 GM/10 ML ORAL SUSP PO SCH (06:20)
[2025-02-22] MEDS: PANTOPRAZOLE 40 MG TAB PO SCH ×2 (06:20→06:24)
[2025-02-22] MEDS: ZINC SULFATE 220mg CAP or TAB PO SCH (09:55)
[2025-02-22] MEDS: LACTULOSE 20Gm/30ML SOLN PO SCH (09:55)
[2025-02-22 10:13] LABS: Ferritin 327.0 ng/mL (22-322)
--- NOTE | 2025-02-22 12:29 | DVHPNRES ---
Progress Note Date Seen: Feb 22, 2025 Resident Creating Document: DIVYA KEITH Medical Necessity Reason Pt with a Central, PICC or Fol: No Subjective Review of Systems Patient is a 85-year-old male with past medical history of ciatica, GERD, and dementia, presented to [facility] ED with complaint of constipation and rectal pain. EMS noted rectal prolapse, and the patient reported that it had come out twice over the past two days. Due to dementia, the patient is a poor historian. His , who was at the bedside, reported that he takes [place] for chronic back pain and has a history of chronic constipation. She stated that he began complaining of rectal pain earlier this week. Due to the patients clinical status, a full review of systems could not be obtained. Spoke with the patients regarding his condition and discharge plan; she was informed and agreed with the proposed plan. Past medical history: Sciatica, GERD, dementia Past surgical history: No significant surgical history Home medications: Sucralfate, meloxicam, pantoprazole, clindamycin, levofloxacin, acetaminophen, [place] Social & Personal history: denies smoking, alcohol, drug use. Allergies: Codeine, penicillin, sulfa antibiotics Patient seen and examined at bedside. Patient is alert and oriented to time, place person and responding to all questions. Eyes: No Pain, No Vision change, No Conjunctivae inflammation, No Eyelid inflammation, No Other, No Redness ENT: No Ear pain, No Ear discharge, No Nose pain, No Nose discharge, No Nose congestion, No Mouth pain, No Mouth swelling, No Throat pain, No Throat swelling, No Other Cardiovascular: No Chest Pain, No Palpitations, No Orthopnea, No Paroxysmal No Dyspnea, No Edema, No Lt Headedness, No Other Respiratory: No Cough, No Dry, No Shortness of breath, No SOB with exertion, No Wheezing, No Hemoptysis, No Pleuritic Pain, No Sputum, No Other Gastrointestinal: Constipation, Other (Rectal pain). No Nausea, No Vomiting, No Abdominal Pain, No Diarrhea, No Melena, No Hematochezia Genitourinary: No Dysuria, No Frequency, No Incontinence, No Hematuria, No Retention, No Other Musculoskeletal: No other, No neck pain, No shoulder pain, No arm pain, No back pain, No hand pain, No leg pain, No foot pain Skin: No Rash, No Lesions, No Jaundice, No Bruising, No Other Objective vital signs Vital Sign Date Time Temp Pulse Resp B/P (MAP) Pulse Ox O2 Delivery O2 Flow Rate FiO2 02/22/25 09:00 98.1 69 12 149/93 (111) 96 98.1 02/22/25 04:50 Room Air* 0 21 Total Intake and Output 02/21/25 02/21/25 02/22/25 15:00 23:00 07:00 Intake Total 0 ml Balance 0 ml medications Current Medications Medications Dose Ordered Sig/Elizabeth Route Start Time Stop Time Status Last Admin Dose Admin Acetaminophen 325 mg Q4HP PRN PO 02/22/25 03:15 Ondansetron HCl 4 mg Q4HP PRN IV 02/22/25 03:15 Zinc Sulfate 220 mg DAILY PO 02/22/25 10:00 02/22/25 09:55 220 MG Morphine Sulfate 2 mg Q4HPRN PRN IV 02/22/25 03:15 Enoxaparin Sodium 40 mg DAILY SC 02/22/25 03:15 02/22/25 09:55 40 MG Lactulose 30 ml DAILY PO 02/22/25 10:00 02/22/25 09:55 30 ML Pantoprazole Sodium 40 mg BIDAC PO 02/22/25 07:00 Sucralfate 1 gm QIDACHS PO 02/22/25 07:00 02/22/25 12:28 1 GM Examination General: Cachectic. A x O 4. Patient following commands. HEENT: Normocephalic, atraumatic, dry mucous membranes Respiratory/pulmonary: Clear lungs bilaterally, vesicular murmurs present in almost all lung rubin, no associated crackles or wheezes. Cardiovascular: Normal heart sounds S1 and S2 with no associated murmurs Abdomen: Abdomen nondistended, there is no pain to palpation in any of the abdominal quadrants, no palpable masses. Extremities: There is no peripheral edema present at the lower extremities. Peripheral Pulses: 3+ Radial (R). 3+ Radial (L). 3+ Dorsalis pedis (R). 3+ Dorsalis pedis(L) Skin: Right-sided sacral ulcer with wound dressing in place Neurological: Intact cranial nerves with no focal neurologic deficits RUPERTO: Stool impactation, rectal vault filled with hard stools. Manual disimpaction of rectum performed, on inspection- brown hard stools without blood seen. laboratory and microbiology Laboratory Tests 02/22/25 03:18 Test 02/22/25 03:18 Range/Units Serum Glucose 93 74-106 mg/dL Labs and/or images reviewed: Labs reviewed by me, Image(s) reviewed by me Problem List/Assessment/Plan Problem List/Assessment/Plan Assessment/Plan Fecal impactation Iatrogenic Chronic constipation CT shows no acute abdominal finding Abdomen/Pelvis CT shows no acute abdominal or pelvic findings Lactulose 30 ml Manual disimpaction performed Discussed discontinuation of [place] GERD Continue Protonix 40mg q.d. Continue Sucralfate 1 g q.i.d. Decubitus Sacral (present on admission) Wound consult - Patient has wound on right hip, noted necrosed ulceration, wound cleansed Dementia Patient has no dementia medication. Normocytic, normochromic anemia, unspecified likely due to anemia of chronic disease Ordered stool occult blood, ferritin, iron panel, haptoglobin, reticulocyte count Ferritin 237 DIET: Full liquid PUD prophylaxis: protonix 40mg DVT prophylaxis: Levonox 40mg Goals of care: Full code, discussed for >16 minutes on 02/22/25 Plan discussed with patient Plan discussed with Dr. Parker Plan discussed with: Patient Date of Service: Feb 22, 2025 Billing Provider: MYRTLE PARKER MD Common Visit Codes: [id number] INP/OBS CARE(HIGH) Secondary Visit Codes: [id number] CARE PLAN 30 MINUTES DIVYA KEITH RESIDENT Feb 22, 2025 12:29 MYRTLE PARKER MD Feb 23, 2025 18:45
[2025-02-22] MEDS: MORPHINE SULFATE 4 MG/ML SYR/VIAL IV PRN (16:18)
[2025-02-22] MEDS ORDERED: POLYETHYLENE GLYCOL 17 GM PWDR PO PRN (16:45)
[2025-02-22] MEDS: POLYETHYLENE GLYCOL 17 GM PWDR PO SCH (18:00)
[2025-02-22 22:54] LABS: Amphetamine Screen, Urine Neg (NEGATIVE); Barbiturate Scree,Urine Neg (NEGATIVE); Benzodiazephine Screen, Urine Neg (NEGATIVE); Cannabinoid Screen, Urine Neg (NEGATIVE); Cocaine Screen, Urine Neg (NEGATIVE); Opiate Scree,Urine Pos (NEGATIVE); Phencyclidine Screen, Urine Neg (NEGATIVE)
[2025-02-22 22:55] LABS: Urine Protein, UAD TRACE (Negative)
[2025-02-23 05:00] VITALS: BP 126/78; PULSE 78; RESP 16; TEMP 98.5; O2SAT 96
[2025-02-23 09:00] VITALS: BP 134/80; PULSE 75; RESP 18; TEMP 98.4; O2SAT 97
[2025-02-23 09:20] LABS: Hematocrit 35.8 % (41.0-53.0); Hemoglobin 12.4 g/dL (13.5-17.5); Mean Corpuscular Hemoglobin 31.6 pg (28.0-32.0); Mean Corpuscular Volume 91.6 fL (80.0-100.0); Nucleated Red Blood Cells % 0.1 %
[2025-02-23 09:35] LABS: Anion Gap 12 (5-15); Carbon Dioxide 22 mmol/L (20-31); Chloride 106 mmol/L (98-107); Potassium 4.1 mmol/L (3.5-5.1); Sodium 140 mmol/L (136-145)
[2025-02-23 09:37] LABS: Calcium 9.3 mg/dL (8.7-10.4)
[2025-02-23 09:42] LABS: BUN/Creatinine Ratio 15.2 (10.0-20.0); Blood Urea Nitrogen 14 mg/dL (9-23); Glucose 90 mg/dL (74-106)
--- NOTE | 2025-02-23 11:33 | DVH ---
Date: 02/23/2025 10:45 AM Examination: XY KUB ABDOMEN SINGLE VIEW History: constipation Comparison: None TECHNIQUE: Frontal views of the abdomen was obtained. FINDINGS: Bowel gas pattern is unremarkable. The lung bases are unremarkable. No acute osseous abnormality identified. IMPRESSION: Nonobstructive bowel gas pattern. Large stool burden.
[2025-02-23 13:00] VITALS: BP 113/70; PULSE 85; RESP 18; TEMP 98.4; O2SAT 98
[2025-02-23] MEDS: BISACODYL 5 MG EC TAB PO ONE (13:30)
[2025-02-23] MEDS: ACETAMINOPHEN 325 MG TAB PO PRN (16:11)
[2025-02-23 17:00] VITALS: BP 123/83; PULSE 90; RESP 18; TEMP 98; O2SAT 97
--- NOTE | 2025-02-23 18:46 | DVHPNRES ---
Progress Note Date Seen: Feb 23, 2025 Resident Creating Document: DIVYA KEITH Medical Necessity Reason Pt with a Central, PICC or Fol: No Subjective Review of Systems Patient is a 85-year-old male with past medical history of ciatica, GERD, and dementia, presented to [facility] ED with complaint of constipation and rectal pain. EMS noted rectal prolapse, and the patient reported that it had come out twice over the past two days. Due to dementia, the patient is a poor historian. His , who was at the bedside, reported that he takes [place] for chronic back pain and has a history of chronic constipation. She stated that he began complaining of rectal pain earlier this week. Due to the patients clinical status, a full review of systems could not be obtained. Spoke with the patients regarding his condition and discharge plan; she was informed and agreed with the proposed plan. 02/23: Patient was seen and examined at bedside. Overnight events were reviewed. Patient reports improvement in symptoms. Patient's present at bedside. Discharge planning discussed with patient's , including follow-up care and home support needs. Patient verbalized understanding. Objective vital signs Vital Sign Date Time Temp Pulse Resp B/P (MAP) Pulse Ox O2 Delivery O2 Flow Rate FiO2 02/23/25 17:00 98.0 90 18 123/83 (96) 97 98.0 02/23/25 08:15 Room Air* 0 21 Total Intake and Output 02/22/25 02/22/25 02/23/25 15:00 23:00 07:00 Intake Total 550 ml 660 ml Output Total 950 ml 1700 ml Balance -400 ml -1040 ml medications Current Medications Medications Dose Ordered Sig/Elizabeth Route Start Time Stop Time Status Last Admin Dose Admin Acetaminophen 325 mg Q4HP PRN PO 02/22/25 03:15 02/23/25 16:11 325 MG Ondansetron HCl 4 mg Q4HP PRN IV 02/22/25 03:15 Pantoprazole Sodium 40 mg BIDAC PO 02/22/25 07:00 02/23/25 17:58 40 MG Sucralfate 1 gm QIDACHS PO 02/22/25 07:00 02/23/25 17:58 1 GM Morphine Sulfate 2 mg Q4HPRN PRN IV 02/22/25 16:15 02/22/25 16:18 2 MG Polyethylene Glycol 17 gm DAILY PO 02/22/25 18:00 02/23/25 09:41 17 GM Ceftriaxone Sodium 50 ml @ 100 mls/hr DAILY@09 IV 02/23/25 09:00 02/23/25 09:44 100 MLS/HR Bisacodyl 5 mg BID PO 02/23/25 22:00 Examination General: Cachectic. A x O 4. Patient following commands. HEENT: Normocephalic, atraumatic, dry mucous membranes Respiratory/pulmonary: Clear lungs bilaterally, vesicular murmurs present in almost all lung rubin, no associated crackles or wheezes. Cardiovascular: Normal heart sounds S1 and S2 with no associated murmurs Abdomen: Abdomen nondistended, there is no pain to palpation in any of the abdominal quadrants, no palpable masses. Extremities: There is no peripheral edema present at the lower extremities. Peripheral Pulses: 3+ Radial (R). 3+ Radial (L). 3+ Dorsalis pedis (R). 3+ Dorsalis pedis(L) Skin: Right-sided sacral ulcer with wound dressing in place Neurological: Intact cranial nerves with no focal neurologic deficits RUPERTO: Stool impactation, rectal vault filled with hard stools. Manual disimpaction of rectum performed, on inspection- brown hard stools without blood seen. laboratory and microbiology Laboratory Tests 02/23/25 08:44 Test 02/23/25 08:44 Range/Units Serum Glucose 90 74-106 mg/dL Labs and/or images reviewed: Labs reviewed by me, Image(s) reviewed by me Problem List/Assessment/Plan Problem List/Assessment/Plan Assessment/Plan Fecal impactation Iatrogenic Chronic constipation CT shows no acute abdominal finding Abdomen/Pelvis CT shows no acute abdominal or pelvic findings Chest X-ray: Nonobstructive bowel gas pattern. Large stool burden. Lactulose 30 ml Manual disimpaction performed Discussed discontinuation of [place] GERD Continue Protonix 40mg q.d. Continue Sucralfate 1 g q.i.d. Decubitus Sacral (present on admission) Wound consult - Patient has wound on right hip, noted necrosed ulceration, wound cleansed Dementia Patient has no dementia medication. Normocytic, normochromic anemia, unspecified likely due to anemia of chronic disease Ordered stool occult blood, ferritin, iron panel, haptoglobin, reticulocyte count Ferritin 237 DIET: Full liquid PUD prophylaxis: protonix 40mg DVT prophylaxis: Levonox 40mg Goals of care: Full code, discussed for >16 minutes on 02/23/25 Plan discussed with patient Plan discussed with Dr. Parker Plan discussed with: Patient, Other My Orders My Orders Orders - DIVYA KEITH Procedure Category Date Status Time Apply Z-Guard JAMES 02/22/25 In Process 13:55 Cleanse Wound With JAMES 02/22/25 In Process Wound Clean 13:55 * Dietary Consult CONS 02/22/25 Transmitted 18:57 Urine Bacterial AVRIL 02/23/25 Uncollected Culture 06:44 Ceftriaxone 1gm/50ml PHA 02/23/25 In Process (Rocephin) 09:00 Complete Blood Count LAB 02/24/25 Verified 04:00 Basic Metabolic Panel LAB 02/24/25 Verified 04:00 Dietary Evaluation Review Comments: Nutrition Recommendation 1) [place] 1 pk BID, MVI w/ minerals 1 tab daily, VitC 500mg BID, Zinc sulfate 220mg BID x 10 days 2) Ensure High Protein 240ml BID 3) Monitor PO intake, lab values, weight trend, and I/O Expected Outcomes/Goals: Wound to improve Fu 3-5 days DIVYA KEITH Feb 23, 2025 18:46
[2025-02-23 21:00] VITALS: BP 131/72; PULSE 88; RESP 19; TEMP 97.5; O2SAT 97
[2025-02-23] MEDS: BISACODYL 5 MG EC TAB PO SCH (21:20)
[2025-02-24] VITALS (7 sets, daily range): BP systolic 103–128; BP diastolic 61–82; PULSE 68–87; RESP 17–19; TEMP 97.2–98.9; O2SAT 93–96
[2025-02-24 07:02] LABS: Hematocrit 35.4 % (41.0-53.0); Hemoglobin 12.3 g/dL (13.5-17.5); Mean Corpuscular Hemoglobin 31.6 pg (28.0-32.0); Mean Corpuscular Volume 91.3 fL (80.0-100.0); Nucleated Red Blood Cells % 0.0 %
[2025-02-24 07:21] LABS: Anion Gap 13 (5-15); Carbon Dioxide 20 mmol/L (20-31); Chloride 105 mmol/L (98-107); Potassium 4.2 mmol/L (3.5-5.1); Sodium 138 mmol/L (136-145)
[2025-02-24 07:23] LABS: Calcium 9.2 mg/dL (8.7-10.4)
[2025-02-24 07:27] LABS: Glucose 99 mg/dL (74-106)
[2025-02-24 07:28] LABS: BUN/Creatinine Ratio 17.6 (10.0-20.0); Blood Urea Nitrogen 16 mg/dL (9-23)
[2025-02-24] MEDS ORDERED: BISA-65 PO (11:53)
[2025-02-24] MEDS ORDERED: AUG875T PO (11:53)
[2025-02-24] MEDS ORDERED: POLY33505 PO (11:53)
--- NOTE | 2025-02-24 13:27 | DVHDSRES ---
Discharge Summary Date of Admission Resident Creating Document: DIVYA KEITH RESIDENT Feb 22, 2025 at 03:05 Date of Discharge: Feb 24, 2025 Labs/Diagnostic Data: Laboratory Results Test 02/24/25 05:28 02/22/25 22:00 02/22/25 15:20 02/22/25 03:18 White Blood Count 8.1 10^3/uL (4.4-10.8) Red Blood Count 3.88 10^6/uL (4.5-5.90) Hemoglobin 12.3 g/dL (13.5-17.5) Hematocrit 35.4 % (41.0-53.0) Mean Corpuscular Volume 91.3 fL (80.0-100.0) Mean Corpuscular Hemoglobin 31.6 pg (28.0-32.0) Mean Corpuscular Hemoglobin Concent 34.6 g/dL (32.0-36.0) Red Cell Distribution Width 14.7 % (11.8-14.3) Platelet Count 395 10^3/uL (140-450) Mean Platelet Volume 6.6 fL (6.9-10.8) Neutrophils (%) (Auto) 57.1 % (37.0-80.0) Lymphocytes (%) (Auto) 28.4 % (10.0-50.0) Monocytes (%) (Auto) 9.0 % (0.0-12.0) Eosinophils (%) (Auto) 4.6 % (0.0-7.0) Basophils (%) (Auto) 0.9 % (0.0-2.0) Neutrophils # (Auto) 4.6 10 ^3/uL (1.6-8.6) Lymphocytes # (Auto) 2.3 10 ^3/uL (0.4-5.4) Monocytes # (Auto) 0.7 10 ^3/uL (0-1.3) Eosinophils # (Auto) 0.4 10 ^3/uL (0-0.8) Basophils # (Auto) 0.1 10 ^3/uL (0-0.2) Nucleated Red Blood Cells 0.0 % Sodium Level 138 mmol/L (136-145) Potassium Level 4.2 mmol/L (3.5-5.1) Chloride Level 105 mmol/L (98-107) Carbon Dioxide Level 20 mmol/L (20-31) Anion Gap 13 (5-15) Blood Urea Nitrogen 16 mg/dL (9-23) Creatinine 0.91 mg/dL (0.700-1.30) Glomerular Filtration Rate Calc 82 mL/min (>90) BUN/Creatinine Ratio 17.6 (10.0-20.0) Serum Glucose 99 mg/dL (74-106) Calcium Level 9.2 mg/dL (8.7-10.4) Urine Color Light-orange (Yellow) Urine Clarity Turbid (Clear) Urine pH 5.5 (5.0-9.0) Urine Specific [place] 1.022 (1.001-1.035) Urine Protein Trace (Negative) Urine Ketones Trace (Negative) Urine Blood Negative /uL (Negative) Urine Nitrite Negative (Negative) Urine Bilirubin Negative (Negative) Urine Urobilinogen Normal mg/dL (Negative) Urine Leukocyte Esterase 3+ /uL (Negative) Urine RBC <1 /hpf (0 - 3) Urine Microscopic WBC 472 /HPF (0-3) Urine Squamous Epithelial Cells Few /hpf (<5) Urine Calcium Oxalate Crystals Few (None Seen) Urine Bacteria Mod /hpf (None Seen) Urine Mucus Few (None Seen) Urine Glucose Normal mg/dL (Normal) Urine Opiates Screen Pos (NEGATIVE) Urine Fentanyl Screen Neg (NEGATIVE) Urine Barbiturates Screen Neg (NEGATIVE) Urine Phencyclidine Screen Neg (NEGATIVE) Urine Amphetamines Screen Neg (NEGATIVE) Urine Benzodiazepines Screen Neg (NEGATIVE) Urine Cocaine Screen Neg (NEGATIVE) Urine Cannabinoids Screen Neg (NEGATIVE) Stool Occult Blood Positive (Negative) Stool Occult Blood Sample #3 (Negative) Reticulocyte Count (auto) 1.84 % (0.5-1.5) Haptoglobin 419 mg/dL (38-329) Prothrombin Time 10.7 sec (9.3-11.8) Prothrombin Time INR 1.01 (0.9-1.15) Activated Partial Thromboplast Time 28.0 SEC (24.5-34.5) Thyroid Stimulating Hormone (TSH) 2.78 uIU/mL (0.55-4.78) Test 02/21/25 23:48 Hemoglobin A1c 5.2 % A1C (<5.7) Phosphorus Level 2.6 mg/dL (2.4-5.1) Magnesium Level 2.0 mg/dL (1.6-2.6) Iron Level 44 ug/dL (65-175) Total Iron Binding Capacity 241 ug/dL (250-425) Percent Iron Saturation 18.3 % (20-55) Ferritin 327.0 ng/mL (22-322) Total Bilirubin 0.6 mg/dL (0.2-1.0) Aspartate Amino Transferase (AST) 15 U/L (13-40) Alanine Aminotransferase (ALT) < 9 U/L (7-40) Alkaline Phosphatase 65 U/L (46-116) C-Reactive Protein High Sensitivity 1.77 mg/dL (<1.0) Total Protein 7.0 g/dL (5.7-8.2) Albumin 3.9 g/dL (3.2-4.8) Triglycerides Level 127 mg/dL (< 150) Cholesterol Level 123 mg/dL (< 200) LDL Cholesterol 80 mg/dL (< 100) HDL Cholesterol 30 mg/dL (40-59) Lipase 27 U/L (12-53) Vitamin B12 Level 461 pg/mL (211-911) Vitamin D 25-Hydroxy 52.6 ng/mL (30.0-100) Folic Acid 6.68 ng/mL (>5.38) Other Laboratory Tests 02/24/25 05:28 Brief Hx & Hospital Course: An 85-year-old male with a history of sciatica, GERD, and dementia presented to [facility] ED with complaints of constipation and rectal pain. EMS noted rectal prolapse, and the patient reported that it had occurred twice in the past two days. Due to dementia, he was a poor historian, and his provided collateral information, noting chronic back pain managed with [place] and a longstanding history of constipation. On examination, digital rectal exam revealed stool impaction, and manual disimpaction was performed with no blood noted. Imaging studies showed no acute abdominal or pelvic findings but confirmed a large stool burden. [place] was recommended for discontinuation, and Lactulose was initiated for bowel management. GERD was managed with Protonix and Sucralfate, and a necrotic ulcer on the right hip was addressed with wound care. Lab work revealed normocytic, normochromic anemia likely due to chronic disease, with ferritin elevated at 237 and further hematologic workup initiated. The patient remains without dementia medications and was unable to provide a full review of systems due to cognitive limitations. His was present throughout the hospitalization and actively participated in discharge planning, expressing understanding and agreement with the proposed care plan. The patient showed improvement in symptoms during hospitalization and verbalized understanding of his condition. Discharge planning included continued bowel regimen, wound care follow-up, and reassessment of pain management strategies. Examination General: Cachectic. A x O 4. Patient following commands. HEENT: Normocephalic, atraumatic, dry mucous membranes Respiratory/pulmonary: Clear lungs bilaterally, vesicular murmurs present in almost all lung rubin, no associated crackles or wheezes. Cardiovascular: Normal heart sounds S1 and S2 with no associated murmurs Abdomen: Abdomen nondistended, there is no pain to palpation in any of the abdominal quadrants, no palpable masses. Extremities: There is no peripheral edema present at the lower extremities. Peripheral Pulses: 3+ Radial (R). 3+ Radial (L). 3+ Dorsalis pedis (R). 3+ Dorsalis pedis(L) Skin: Right-sided sacral ulcer with wound dressing in place Neurological: Intact cranial nerves with no focal neurologic deficits RUPERTO: Stool impactation, rectal vault filled with hard stools. Manual disimpaction of rectum performed, on inspection- brown hard stools without blood seen. Operations or Procedures PATIENT: APRIL RIOS ACCT: [id number] UNIT: [id number] : 1940 LOC: CENTRAL ROOM / BED: [facility] / A AGE / SEX: 85 / M ADM STATUS: ADM IN SERVICE 1046 ORDERING PHYSICIAN: AMIE CHATMAN RESIDENT PROCEDURE(s): KUB - KUB ABDOMEN SINGLE VIEW REASON: constipation ORDER NUMBER(s): [id number], ACCESSION NUMBER(s): [id number] Date: 02/23/2025 10:45 AM Examination: XY KUB ABDOMEN SINGLE VIEW History: constipation Comparison: None TECHNIQUE: Frontal views of the abdomen was obtained. FINDINGS: Bowel gas pattern is unremarkable. The lung bases are unremarkable. No acute osseous abnormality identified. IMPRESSION: Nonobstructive bowel gas pattern. Large stool burden. - PATIENT: APRIL RIOS ACCT: [id number] UNIT: [id number] : 1940 LOC: ER ROOM / BED: / AGE / SEX: 85 / M ADM STATUS: REG ER SERVICE 29 ORDERING PHYSICIAN: PARK NUÑEZ MD PROCEDURE(s): CXRP - CHEST PORTABLE REASON: chest pain ORDER NUMBER(s): [id number], ACCESSION NUMBER(s): [id number] CHEST RADIOGRAPH Indication: chest pain Technique: Single frontal view of the chest was obtained COMPARISON: XY CHEST PORTABLE on DOS: 09/14/23, XY CHEST PORTABLE on DOS: 09/05/22 FINDINGS: Lungs and pleural spaces are clear. Cardiac silhouette is borderline size. Mild pulmonary venous congestion. Bones and soft tissues demonstrate no significant abnormality. IMPRESSION: No acute disease. PATIENT: APRIL RIOS ACCT: [id number] UNIT: [id number] : 1940 LOC: ER ROOM / BED: / AGE / SEX: 85 / M ADM STATUS: REG ER SERVICE 29 ORDERING PHYSICIAN: PARK NUÑEZ MD PROCEDURE(s): ABPL - CT AB PEL WO CON-NO ORAL OR IV REASON: abd pain ORDER NUMBER(s): [id number], ACCESSION NUMBER(s): [id number] Exam: CT CT AB PEL WO CON-NO ORAL OR IV History: abd pain Comparison Study: None Technique: Multidetector spiral CT of the abdomen was performed from lung bases to pubic symphysis. Imaging was performed without IV contrast. Axial, coronal and sagittal multiplanar reformats were obtained from the axial data set by the technologist. Radiation dose : 1. Abdomen/Pelvis: CTDIvol 18.09 mGy, DLP 3063.68 mGy*cm. Findings: Evaluation of solid organs is limited due to lack of intravenous contrast use. Lung Bases: No acute or significant lung base finding. Normal heart size. No pleural or pericardial effusion. Liver: The liver is normal in size. No focal lesions. Gallbladder and biliary Tree: Unremarkable Spleen: Unremarkable Pancreas: The pancreas is grossly normal in appearance. Adrenal Glands: Unremarkable Kidneys: Kidneys are grossly normal without calculi or hydronephrosis. Bladder: Bladder is decompressed with a Lin catheter and cannot be adequately assessed. Bowel: The stomach is grossly normal in appearance. Small bowel and colon are normal in caliber and distribution. The appendix is not visualized; however, no secondary findings of acute appendicitis identified. Ascites: Absent Lymphadenopathy: No mesenteric, retroperitoneal or periportal lymphadenopathy. Abdominal wall and Mesentery: Unremarkable. Vasculature: The visualized abdominal aorta is normal in size and caliber. Evaluation of abdominal and pelvic vessels is limited due to lack of intravenous contrast. Pelvic Organs: Unremarkable Musculoskeletal: No aggressive focal bony lesions, acute fractures or dislocation. IMPRESSION: No acute abdominal or pelvic findings. Radiation optimization: All CT scans at this facility use at least one of these dose optimization techniques: automated exposure control mA and/or kV adjustment per patient size (includes targeted exams where dose is matched to clinical indication) or iterative reconstruction. Condition at Discharge: Stable Final Diagnosis/Problems List Fecal impactation Iatrogenic Chronic constipation GERD Decubitus Sacral (present on admission) Dementia Normocytic, normochromic anemia, unspecified likely due to anemia of chronic disease Discharge Disposition: Home with Health Services Discharge Instruct/Medications Diet: Regular Activity: Bed rest Follow Up/Referral: Follow up with PCP within 1-2 weeks Medications: Continue home medication including Amoxicillin & Pot Clavulanate 875 Mg, Bisacodyl 5 Mg, Pantoprazole Sodium Sesquihydr 40 Mg, Polyethylene Glycol 17 Gm/Scoop Pow, Sucralfate 1 Gm/10 TN Ss Scheduled Bisacodyl (Bisacodyl Ec), 5 MG PO BID Pantoprazole Sodium Sesquihydr (Protonix), 40 MG PO BIDAC Sucralfate (Carafate Susp), 1 GM PO QIDACHS Scheduled PRN Polyethylene Glycol (Miralax), 17 GM PO DAILYP PRN Discontinued Medications Acetaminophen W/ Codeine (Tylenol W/Cod #3), 1 TAB PO Q8HP PRN Clindamycin Hcl (Clindamycin Hcl), 1 CAP PO TID Hydrocodone-Acetaminophen (Hydrocodone/Acetaminophen 10-325 mg), 1 TAB PO BIDPRN PRN for PAIN SCALE 1 THRU 6, (Reported) Levofloxacin Hemihydrate (Levaquin 500 Mg), 1 TAB PO DAILY Meloxicam (Meloxicam), 1 TAB PO DAILY, (Reported) Discharge Statement: "Patient was advised to return to the ER or call 911 if any headaches, dizziness, shortness of breath, chest pain, abdominal pain, bleeding, fevers, or worsening of medical condition. Patient was counseled about treatment plan, medications, possible side effects, patientverbalized understanding. All questions were answered to the best of my ability. This discharge took greater then 30 minutes in planning, reviewing documentation, counseling the patient, and discussing with other team members." ASSESSMENT ASSESSMENT Assessment Fecal impactation Iatrogenic Chronic constipation GERD Decubitus Sacral (present on admission) Dementia Normocytic, normochromic anemia, unspecified likely due to anemia of chronic disease DIVYA KEITH RESIDENT Feb 24, 2025 13:27
[2025-02-25 01:00] VITALS: BP 110/66; PULSE 59; RESP 18; TEMP 98.2; O2SAT 95
== END 2025-02-24 18:50 | disposition home health service (06) | DRG 390 ==
LOC: ER 23:15 → EDBD 23:15 → OVERFLOW 02-22 03:05 → CENTRAL 02-22 04:31
PROVIDERS: ADMIT Internal Medicine Geriatric Medicine; ATTEND Internal Medicine Geriatric Medicine
DX: K56.41 Fecal impaction (principal); F03.90 Unspecified dementia, unspecified severity, without behavioral disturbance, psychotic disturbance, mood disturbance, and anxiety; K21.9 Gastro-esophageal reflux disease without esophagitis; K62.3 Rectal prolapse; G89.29 Other chronic pain; L89.152 Pressure ulcer of sacral region, stage 2; D63.8 Anemia in other chronic diseases classified elsewhere; Z88.1 Allergy status to other antibiotic agents; Z88.2 Allergy status to sulfonamides; Z88.5 Allergy status to narcotic agent; Z79.2 Long term (current) use of antibiotics; Z79.899 Other long term (current) drug therapy
CPT/HCPCS: 36415; 74018; 80048; 80053; 80061; 80307; 81001; 82270; 82306; 82607; 82728; 82746; 83010; 83036; 83540; 83550; 83690; 83735; 84100; 84443; 85025; 85045; 85610; 85730; 86141; G0378; J2405